=== PATIENT | female | born 2000 | race Two or more races ===

== ENCOUNTER 2021-07-13 08:18 | Emergency (ER) | payer OTHER, MEDICAID ==
[~2021-07-13] VITALS: Ht 160 cm; Wt 90.7 kg
[2021-07-13 08:55] VITALS: BP 150/93
== END 2021-07-13 11:33 | disposition left against medical advice (07) ==
LOC: ER 08:18
DX: S69.92XA Unspecified injury of left wrist, hand and finger(s), initial encounter (principal); Z53.21 Procedure and treatment not carried out due to patient leaving prior to being seen by health care provider; W23.0XXA Caught, crushed, jammed, or pinched between moving objects, initial encounter; Y93.89 Activity, other specified; Y92.89 Other specified places as the place of occurrence of the external cause; Y99.8 Other external cause status
CPT/HCPCS: 73140

== ENCOUNTER 2024-03-24 19:46 | Emergency (ER) | payer OTHER, MEDICAID ==
[~2024-03-24] VITALS: Ht 160 cm; Wt 137.4 kg
[2024-03-24 20:00] VITALS: BP 127/80; PULSE 100; RESP 20; O2SAT 96
--- NOTE | 2024-03-24 20:27 | ED.PDOC ---
HPI Comments 24Y F presents to ED for chief complaint chest pain x3days with cough, headache, and back pain. Pt was seen at [facility] ER on 03/21/2024 and was told chest pain was caused by the cough. Pt states chest pain is lingering and feels like pressure. Pt has never experienced this type of chest pain before. Pt tested negative for on Tuesday. Chief Complaint: Chest Pain Time Seen by MD: 20:00 Reviewed Notes: Nurses Notes, Medications, Allergies Allergies: Coded Allergies: NO KNOWN ALLERGIES (Unverified , 07/13/21) Information Source: Patient Mode of Arrival: Ambulatory Severity: Mild Timing: Days Duration: Since onset Location: Substernal Radiation: Back Quality: Pressure Onset: At Rest Cardiac Risk Factors: None PE Risk Factors: None History of: None Modifying Factors: Nothing Associated Signs and Symptoms: Other Past Medical History PAST MEDICAL HISTORY: Denies Surgical History: Denies all surgeries YARN HAULER History: No Pertinent YARN HAULER History Family History Family History: Unknown Social History Smoker: Non-Smoker Alcohol: Denies ETOH Use Drugs: Denies Drug Use Lives In: Home Constitutional: denies: chills, diaphoresis, fatigue, fever, malaise, sweats, weakness, others EENTM: denies: blurred vision, double vision, ear bleeding, ear discharge, ear drainage, ear pain, ear ringing, eye pain, eye redness, hearing loss, mouth pain, mouth swelling, nasal discharge, nose bleeding, nose congestion, nose pain, photophobia, tearing, throat pain, throat swelling, voice changes, others Respiratory: reports: cough; denies: hemoptysis, orthopnea, SOB at rest, shortness of breath, SOB with excertion, stridor, wheezing, others Cardiovascular: reports: chest pain; denies: dizzy spells, diaphoresis, Dyspnea on exertion, edema, irregular heart beat, left arm pain, lightheadedness, palpitations, PND, syncope, others Gastrointestinal: denies: abdomen distended, abdominal pain, blood streaked bowels, constipated, diarrhea, dysphagia, difficulty swallowing, hematemesis, melena, nausea, poor appetite, poor fluid intake, rectal bleeding, rectal pain, vomiting, others Genitourinary: denies: abnormal vagina bleeding, burning, dyspareunia, dysuria, flank pain, frequency, hematuria, incontinence, pain, , vagina discharge, urgency, others Neurological: reports: headache; denies: dizziness, fainting, left sided numbness, left sided weakness, numbness, paresthesia, pre-existing deficit, right sided numbness, right sided weakness, seizure, speech problems, tingling, tremors, weakness, others Musculoskeletal: reports: back pain; denies: gout, joint pain, joint swelling, muscle pain, muscle stiffness, neck pain, others Integumetry: denies: bruises, change in color, change in hair/nails, dryness, laceration, lesions, lumps, rash, wounds, others Allergic/Immunocompromised: denies: Difficulty Healing, Frequent Infections, Hives, Itching, others Hematologic/Lymphatic: denies: anemia, blood clots, easy bleeding, easy bruising, swollen glands, others Endocrine: denies: excessive hunger, excessive sweating, excessive thirst, excessive urination, flushing, intolerance to cold, intolerance to heat, unexplained weight gain, unexplained weight loss, others Psychiatric: denies: anxiety, bipolar disorder, depression, hopeless, panic disorder, schizophrenia, sleepless, suicidal, others All Other Systems: Reviewed and Negative Physical Exam General Appearance: No Apparent Distress, Normal HEENT: Normal ENT Inspection, Pharynx Normal, TMs Normal Neck: Full Range of Motion, Non-Tender, Normal, Normal Inspection Respiratory: Chest Non-Tender, Lungs Clear, No Accessory Muscle Use, No Respiratory Distress, Normal Breath Sounds Cardiovascular: No Edema, No JVD, No Murmur, No Gallop, Normal Peripheral Pulses, Regular Rate/Rhythm Breast Exam: Deferred Gastrointestinal: No Organomegaly, Non Tender, No Pulsatile Mass, Normal Bowel Sounds, Soft Genitalia: Deferred Pelvic: Deferred Rectal: Deferred Extremities: No calf tenderness, Normal capillary refill, Normal inspection, Normal range of motion, Non-tender, No pedal edema Musculoskeletal : Apperance: Normal Neurologic: Alert, iron melter II-XII nml as Tested, No Motor Deficits, Normal Affect, Normal Mood, No Sensory Deficits Cerebellar Function: NOT DONE Reflexes: NOT DONE Skin: Dry, Normal Color, Warm Lymphatic: No Adenopathy Was a procedure done? Was a procedure done?: No CP Differential Dx Differential Diagnosis: Anxiety / Panic Attack, Electrolyte Disorder X-Ray, Labs, Meds, VS Vital Signs Date Time Temp Pulse Resp B/P (MAP) Pulse Ox O2 Delivery O2 Flow Rate FiO2 03/24/24 20:00 98.5 100 20 127/80 (96) 96 03/24/24 19:56 100 Time of 1ST Reevaluation: 20:30 Reevaluation 1ST: Unchanged Patient Education/Counseling: Diagnosis, Treatment Family Education/Counseling: No Family Present Departure 1 Departure Time of Disposition: 22:24 (Presenting with chest pain. Patient's order for labs and x-rays. EKG was nonischemic. Patient then eloped) Impression: Primary Impression: Acute chest pain Disposition: LEFT AWOL/ELOPED Condition: Serious Critical Care Note Critical Care Time?: No Stability Stability form required: No Heart Score Heart Score: Heart Score Response (Comments) Value History Slightly Suspicious 0 EKG Normal 0 Age <45 0 Risk Factors No known risk factors 0 Troponin N/A 0 Total 0 I personally scribed for MARGY DING MD ([email or web address]) on 03/24/24 at 20:27. Electronically submitted by Miryam Munoz ([email or web address]). MARGY DING MD Mar 24, 2024 20:27
--- NOTE | 2024-03-25 05:51 | ECG ---
[facility] Test Date: 2024-03-24 Test Time: 19:56:42 Pat Name: RENATO ROMERO Department: ER Room: Gender: F Return Agent: JOHN : [id number] Requested By: JENNIFER NEGRON Order Number: [id number] Reading MD: Khadar Velázquez Measurements Intervals [place] Rate: 100 P: 41 MS: 137 QRS: 109 QRSD: 78 T: 12 QT: 331 QTc: 427 Interpretive Statements Sinus tachycardia Borderline right axis deviation Electronically Signed On 03-25-2024 14:17:15 PST by Khadar Velázquez Please click the below link to view image of tracing.
== END 2024-03-24 22:25 | disposition left against medical advice (07) ==
LOC: ER 19:46
DX: R07.9 Chest pain, unspecified (principal); R05.9 Cough, unspecified; R51.9 Headache, unspecified; M54.9 Dorsalgia, unspecified
CPT/HCPCS: 93005